=== PATIENT | male | born 1975 | race Caucasian/White ===

== ENCOUNTER 2017-12-16 23:11 | Emergency (ER) | payer BC ==
[2017-12-16] MEDS ORDERED: Fluorescein Opthalmic Strip ONE (23:54)
[2017-12-16] MEDS ORDERED: Proparacaine 0.5% Opth 15 ML BOT ONE (23:55)
[2017-12-17] MEDS ORDERED: Adacel (T-DAP) 0.5 ML VIAL ONE (00:11)
[2017-12-17] MEDS ORDERED: HYDROcodone/Acetaminophen 10/325 mg Tablet ONE (00:34)
[2017-12-17] MEDS ORDERED: Lidocaine 1% PF 5 ML VIAL ONE (00:48)
[2017-12-17] MEDS ORDERED: Bacitracin Zinc 1 Packet ONE (01:23)
== END 2017-12-17 01:38 | disposition home or self-care (01) ==
LOC: ERS 23:11
DX: S01.111A Laceration without foreign body of right eyelid and periocular area, initial encounter (principal); F41.9 Anxiety disorder, unspecified; Z79.01 Long term (current) use of anticoagulants; W22.8XXA Striking against or struck by other objects, initial encounter
CPT/HCPCS: 12011; 90471; 90715; J2001

== ENCOUNTER 2024-03-11 16:00 | Outpatient (CLI) | payer BC | END 2024-03-11 16:01 | disposition home or self-care (01) | LOC: SLEEPLAB 16:00 | PROVIDERS: ATTEND Otolaryngology Otolaryngic Allergy | DX: G47.33 Obstructive sleep apnea (adult) (pediatric) (principal); R06.83 Snoring; G47.10 Hypersomnia, unspecified; F41.9 Anxiety disorder, unspecified; G47.00 Insomnia, unspecified; R09.02 Hypoxemia; I49.3 Ventricular premature depolarization | CPT/HCPCS: 95811 ==